=== PATIENT | male | born 1970 | race African-American/Black ===

== ENCOUNTER 2019-11-16 19:24 | Emergency (ER) | payer OTHER ==
--- NOTE | 2019-11-16 20:13 | RAD REPORT ---
EXAM DESCRIPTION: CT - Head Brain Wo Cont - 11/16/2019 8:00 pm CLINICAL HISTORY: HEADACHE COMPARISON: HEAD BRAIN W O CONTRAST dated 01/26/2008 TECHNIQUE: Axial 5 mm thick images of the head were obtained without IV contrast. All CT scans are performed using dose optimization technique as appropriate and may include automated exposure control or mA/KV adjustment according to patient size. FINDINGS: No intracranial hemorrhage, mass, edema or shift of mid-line structures. No acute infarcti on changes seen. No cortical edema or sulcal effacement. Physiologic calcifications present matching the comparison. Ventricles are normal. Mastoid air cells and visualized portions of the paranasal sinuses are clear. No acute bony findings. IMPRESSION: Negative non-contrast CT head examination for acute finding No significant change from comparison.
--- NOTE | 2019-11-16 21:43 | EDPHYS ---
Physician Documentation [facility] Name: Jose Lizama Jr Age: 49 yrs Sex: Male : 1970 Arrival Date: 11/16/2019 Time: 19:29 Bed 24 Private MD: ED Physician Fahad Russell HPI: 11/15 21:37 This 49 yrs old Black Male presents to ER via Ambulatory with complaints of Head Pain. marcus 21:37 The patient complains of pain to the left side of the back of head, left occipital marcus area, left base of the skull, right side of the back of head, right occipital area and right base of the skull. The patient describes the headache as aching. Onset: The symptoms/episode began/occurred 2 day(s) ago. Associated signs and symptoms: The patient has no apparent associated signs or symptoms. Severity of symptoms: At its worst the pain was mild, in the emergency department the pain is unchanged. Headache History: Denies prior headaches. The symptoms are alleviated by quiet, remaining still, the symptoms are aggravated by laying down. The patient has not experienced similar symptoms in the past. Historical: - Allergies: 19:46 No Known Allergies; ca1 - PMHx: 19:46 Depression; Hypertension; ca1 - PSHx: 19:46 None; ca1 - Immunization history:: Adult Immunizations up to date, Flu vaccine is up to date. - Social history:: Smoking status: Patient denies any tobacco usage or history of. Patient/guardian denies using alcohol. - Family history:: not pertinent. ROS: 21:37 Constitutional: Negative for fever, chills, and weight loss, Eyes: Negative for injury, marcus pain, redness, and discharge, ENT: Negative for injury, pain, and discharge, Neck: Negative for injury, pain, and swelling, Cardiovascular: Negative for chest pain, palpitations, and edema, Respiratory: Negative for shortness of breath, cough, wheezing, and pleuritic chest pain, Abdomen/GI: Negative for abdominal pain, nausea, vomiting, diarrhea, and constipation, Back: Negative for injury and pain, : Negative for injury, bleeding, discharge, and swelling, MS/Extremity: Negative for injury and deformity, Skin: Negative for injury, rash, and discoloration, Psych: Negative for depression, anxiety, suicide ideation, homicidal ideation, and hallucinations, Allergy/Immunology: Negative for hives, rash, and allergies, Endocrine: Negative for neck swelling, polydipsia, polyuria, polyphagia, and marked weight changes, Hematologic/Lymphatic: Negative for swollen nodes, abnormal bleeding, and unusual bruising. 21:37 Neuro: Positive for headache. Exam: 21:37 Constitutional: This is a well developed, well nourished patient who is awake, alert, marcus and in no acute distress. Head/Face: Normocephalic, atraumatic. Eyes: Pupils equal round and reactive to light, extra-ocular motions intact. Lids and lashes normal. Conjunctiva and sclera are non-icteric and not injected. Cornea within normal limits. Periorbital areas with no swelling, redness, or edema. ENT: Nares patent. No nasal discharge, no septal abnormalities noted. Tympanic membranes are normal and external auditory canals are clear. Oropharynx with no redness, swelling, or masses, exudates, or evidence of obstruction, uvula midline. Mucous membranes moist. Neck: Trachea midline, no thyromegaly or masses palpated, and no cervical lymphadenopathy. Supple, full range of motion without nuchal rigidity, or vertebral point tenderness. No Meningismus. Chest/axilla: Normal chest wall appearance and motion. Nontender with no deformity. No lesions are appreciated. Cardiovascular: Regular rate and rhythm with a normal S1 and S2. No gallops, murmurs, or rubs. Normal PMI, no JVD. No pulse deficits. Respiratory: Lungs have equal breath sounds bilaterally, clear to auscultation and percussion. No rales, rhonchi or wheezes noted. No increased work of breathing, no retractions or nasal flaring. Abdomen/GI: Soft, non-tender, with normal bowel sounds. No distension or tympany. No guarding or rebound. No evidence of tenderness throughout. Back: No spinal tenderness. No costovertebral tenderness. Full range of motion. Male : Normal genitalia with no discharge or lesions. Skin: Warm, dry with normal turgor. Normal color with no rashes, no lesions, and no evidence of cellulitis. MS/ Extremity: Pulses equal, no cyanosis. Neurovascular intact. Full, normal range of motion. Neuro: Awake and alert, GCS 15, oriented to person, place, time, and situation. Cranial nerves II-XII grossly intact. Motor strength 5/5 in all extremities. Sensory grossly intact. Cerebellar exam normal. Normal gait. Psych: Awake, alert, with orientation to person, place and time. Behavior, mood, and affect are within normal limits. Vital Signs: 19:40 BP 149 / 93; Pulse 82; Resp 16 S; Temp 97.1(TE); Pulse Ox 98% on R/A; Weight 107.95 kg ca1 (R); Height 5 ft. 10 in. (177.80 cm) (R); Pain 5/10; 20:59 BP 158 / 97; Pulse 58; Resp 16; Pulse Ox 99% on R/A; vc 21:45 BP 153 / 103; Pulse 64; Resp 18; Pulse Ox 99% on R/A; vc 21:55 BP 149 / 93; Pulse 69; Pulse Ox 100% on R/A; vc 19:40 Body Mass Index 34.15 (107.95 kg, 177.80 cm) ca1 MDM: 19:51 Patient medically screened. [facility] 21:39 Data reviewed: vital signs, nurses notes, radiologic studies, CT scan. [facility] 11/15 19:52 Order name: CT Head Brain wo Cont; Complete Time: 21:19 [facility] Administered Medications: 21:50 Drug: Meclizine 25 mg Route: PO; vc 21:57 Follow up: Response: Medication administered at discharge. 21:51 Drug: Norvasc 5 mg Route: PO; vc 21:57 Follow up: Response: Medication administered at discharge. Disposition: 11/16/19 21:42 Discharged to Home. Impression: Headache, Essential (primary) hypertension. - Condition is Stable. - Discharge Instructions: General Headache Without Cause, Hypertension, Hypertension, [id number], How to Take Your Blood Pressure, [id number], General Headache Without Cause, [id number], Managing Your Hypertension. - Prescriptions for Meclizine 25 mg Oral Tablet - take 1 tablet by ORAL route every 8 hours As needed; 30 tablet. Norvasc 5 mg Oral Tablet - take 1 tablet by ORAL route once daily; 20 tablet. - Medication Reconciliation Form, Thank You Letter, Antibiotic Education, Prescription Opioid Use form. - Follow up: Private Physician; When: 2 - 3 days; Reason: Recheck today's complaints, Continuance of care, Re-evaluation by your physician. Follow up: Kostas Waddell MD; When: 2 - 3 days; Reason: Recheck today's complaints, Continuance of care, Re-evaluation by your physician. - Problem is new. - Symptoms have improved. Signatures: Dispatcher [employer] Fahad Gaffney MD MD cha Acob, Cheryl, RN RN ca1 Aishwarya Poon RN RN vc Corrections: (The following items were deleted from the chart) 21:42 21:42 11/16/2019 21:42 Discharged to Home. Impression: Headache; Essential (primary) marcus hypertension. Condition is Stable. Forms are Medication Reconciliation Form, Thank You Letter, Antibiotic Education, Prescription Opioid Use. Follow up: Private Physician; When: 2 - 3 days; Reason: Recheck today's complaints, Continuance of care, Re-evaluation by your physician. Problem is new. Symptoms have improved. marcus 21:57 21:42 11/16/2019 21:42 Discharged to Home. Impression: Headache; Essential (primary) vc hypertension. Condition is Stable. Forms are Medication Reconciliation Form, Thank You Letter, Antibiotic Education, Prescription Opioid Use. Follow up: Private Physician; When: 2 - 3 days; Reason: Recheck today's complaints, Continuance of care, Re-evaluation by your physician. Follow up: Kostas Waddell; When: 2 - 3 days; Reason: Recheck today's complaints, Continuance of care, Re-evaluation by your physician. Problem is new. Symptoms have improved. marcus
--- NOTE | 2019-11-16 21:43 | ER ---
Nurse's Notes [facility] Name: Jose Lizama Jr Age: 49 yrs Sex: Male : 1970 Arrival Date: 11/16/2019 Time: 19:29 Bed 24 Private MD: Diagnosis: Headache;Essential (primary) hypertension Presentation: 11/15 19:40 Chief complaint: Patient states: "Seems like fluid is running in my head, when I Lay on ca1 the R side, it goes there, when I lay back it's on the back, when I turn on my R side, I feel it going there. I take Risperidone for my depression and HCTZ for my BP, this happened 10 yrs ago but it just went away so I am just concerned. This chet, it started last night. Coronavirus screen: The patient has NOT traveled to a country currently being monitored by the [facility] within the last 14 days. The patient has NOT had contact with any known and/or suspected case of coronavirus. Ebola Screen: Patient negative for fever greater than or equal to 101.5 degrees Fahrenheit, and additional compatible Ebola Virus Disease symptoms Patient denies exposure to infectious person. Patient denies travel to an Ebola-affected area in the 21 days before illness onset. No symptoms or risks identified at this time. Initial Sepsis Screen: Does the patient meet any 2 criteria? No. Patient's initial sepsis screen is negative. Does the patient have a suspected source of infection? No. Patient's initial sepsis screen is negative. Risk Assessment: Do you want to hurt yourself or someone else? Patient reports no desire to harm self or others. Onset of symptoms was November 15, 2019. 19:40 Method Of Arrival: Ambulatory ca1 19:40 Acuity: DESHAWN 3 ca1 Historical: - Allergies: 19:46 No Known Allergies; ca1 - PMHx: 19:46 Depression; Hypertension; ca1 - PSHx: 19:46 None; ca1 - Immunization history:: Adult Immunizations up to date, Flu vaccine is up to date. - Social history:: Smoking status: Patient denies any tobacco usage or history of. Patient/guardian denies using alcohol. - Family history:: not pertinent. Screenin:05 Abuse screen: Denies threats or abuse. Nutritional screening: No deficits noted. vc Tuberculosis screening: No symptoms or risk factors identified. Fall Risk None identified. Assessment: 20:04 General: Appears in no apparent distress. uncomfortable, Behavior is cooperative, vc appropriate for age, anxious. Pain: Complains of pain in head. Neuro: Level of Consciousness is awake, alert, obeys commands, Oriented to person, place, time, situation. Cardiovascular: Capillary refill < 3 seconds Patient's skin is warm and dry. Respiratory: Airway is patent Respiratory effort is even, unlabored, Respiratory pattern is regular, symmetrical. GI: No signs and/or symptoms were reported involving the gastrointestinal system. : No signs and/or symptoms were reported regarding the genitourinary system. EENT: No signs and/or symptoms were reported regarding the EENT system. Derm: Skin is intact. Musculoskeletal: Circulation, motion, and sensation intact. Range of motion: intact in all extremities. 21:00 Reassessment: Patient and/or family updated on plan of care and expected duration. Pain vc level reassessed. Patient is alert, oriented x 3, equal unlabored respirations, skin warm/dry/pink. 21:44 Reassessment: Patient and/or family updated on plan of care and expected duration. Pain vc level reassessed. Patient is alert, oriented x 3, equal unlabored respirations, skin warm/dry/pink. Patient states symptoms have not improved. Vital Signs: 19:40 BP 149 / 93; Pulse 82; Resp 16 S; Temp 97.1(TE); Pulse Ox 98% on R/A; Weight 107.95 kg ca1 (R); Height 5 ft. 10 in. (177.80 cm) (R); Pain 5/10; 20:59 BP 158 / 97; Pulse 58; Resp 16; Pulse Ox 99% on R/A; vc 21:45 BP 153 / 103; Pulse 64; Resp 18; Pulse Ox 99% on R/A; vc 21:55 BP 149 / 93; Pulse 69; Pulse Ox 100% on R/A; vc 19:40 Body Mass Index 34.15 (107.95 kg, 177.80 cm) ca1 ED Course: 19:29 Patient arrived in ED. cl3 19:45 Triage completed. ca1 19:46 Arm band placed on right wrist. ca1 19:51 Fahad Russell MD is Attending Physician. marcus 19:56 Calcote, Aishwarya, RN is Primary Nurse. vc 20:01 CT Head Brain wo Cont In Process Unspecified. EDMS 20:06 Patient has correct armband on for positive identification. Call light in reach. Pulse vc ox on. NIBP on. 21:42 Kostas Waddell MD is Referral Physician. [facility] 21:56 No provider procedures requiring assistance completed. Patient did not have IV access vc during this emergency room visit. Administered Medications: 21:50 Drug: Meclizine 25 mg Route: PO; vc 21:57 Follow up: Response: Medication administered at discharge. vc 21:51 Drug: Norvasc 5 mg Route: PO; vc 21:57 Follow up: Response: Medication administered at discharge. vc Outcome: 21:42 Discharge ordered by . marcus 21:56 Discharged to home ambulatory. vc 21:56 Condition: good 21:56 Discharge instructions given to patient, Instructed on discharge instructions, follow up and referral plans. medication usage, Demonstrated understanding of instructions, follow-up care, medications, Prescriptions given X 2. 21:57 Patient left the ED. vc Signatures: Dispatcher [employer] EDMT Fahad Russell MD MD cha Acob, Cheryl, RN RN ca1 Naty Bran cl3 Aishwarya Poon RN RN vc Corrections: (The following items were deleted from the chart) 19:46 19:40 Pulse 82bpm; Resp 16bpm; Spontaneous; Pulse Ox 98% RA; Temp 97.1F Temporal; ca1 107.95 kg Reported; Height 5 ft. 10 in. Reported; BMI: 34.1; Pain 5/10; ca1
[2019-11-16] MEDS ORDERED: AMLODIPINE 5 MG TAB ONE (21:53)
[2019-11-16] MEDS ORDERED: MECLIZINE HCL 12.5 MG TAB ONE (21:53)
[2019-11-16 22:20] VITALS: TEMP 97.1
[2019-11-16 22:24] VITALS: BP 149/93; O2SAT 100
== END 2019-11-16 21:57 | disposition home or self-care (01) ==
LOC: ER 19:24
DX: R51 Headache (principal); I10 Essential (primary) hypertension
CPT/HCPCS: 70450; 99284